=== PATIENT | female | born 1950 | race Caucasian/White ===

== ENCOUNTER 2017-10-09 11:04 | Emergency (ER) | payer MEDICARE, BC ==
[2017-10-09 11:47] VITALS: BP 102/77
--- NOTE | 2017-10-09 13:08 | XRAY Preliminary Report ---
Exam: XR ANKLE 3 VIEW RT IMPRESSION: No fracture or subluxation. [facility] SITE ID: [id number]
--- NOTE | 2017-10-09 13:11 | XRAY Report ---
EXAM: RIGHT ANKLE RADIOGRAPHY EXAM DATE: 10/09/2017 12:41 PM. CLINICAL HISTORY: Fall, pain. COMPARISON: None. TECHNIQUE: 3 views. FINDINGS: Bones: Normal. No fractures or bone lesions. Joints: Normal. No effusion. No subluxations. The ankle mortise is normally aligned. Soft Tissues: Normal. No soft tissue swelling. IMPRESSION: No fracture or subluxation. [facility] Referring Provider Line: [phone] SITE ID: [id number]
--- NOTE | 2017-10-09 13:26 | ED Physician Documentation ---
History of Present Illness - Stated complaint Stated Complaint: R FOOT INJ/BACK PX - Chief complaint Chief Complaint: Ext Problem - History obtained from History obtained from: Patient (pt here for evaluation of right foot pain. she states that she fell down some stairs yesterday. did not hit her head. has some bruising on her back. states that today she had pain in her right foot. no other injuries form the fall.) Review of Systems Constitutional: denies: Fever, Chills Cardiac: denies: Chest pain / pressure, Palpitations Respiratory: denies: Cough GI: denies: Abdominal Pain, Nausea, Vomiting Skin: reports: Abrasion (s) (right loer back). denies: Rash Musculoskeletal: reports: Extremity pain (right foot). denies: Neck pain, Back pain, Joint pain, Joint swelling Neurologic: denies: Generalized weakness, Focal weakness, Headache, Head injury , LOC PD PAST MEDICAL HISTORY - Past Medical History Past Medical History: No - Past Surgical History Past Surgical History: Yes /[employer]: section HEENT: Tonsil/Adenoidectomy - Present Medications Home Medications: Ambulatory Orders Medication Instructions Recorded Confirmed No Known Home Medications [No 10/09/17 10/09/17 Known Home Medications] - Allergies Allergies/Adverse Reactions: Allergies Allergy/AdvReac Type Severity Reaction Status Date / Time acetaminophen [From Percocet] AdvReac Emesis Verified 10/09/17 11:47 oxycodone [From Percocet] AdvReac Emesis Verified 10/09/17 11:47 - Social History Does the pt smoke?: No Smoking Status: Never smoker Does the pt drink ETOH?: No ETOH Use: Wine Does the pt have substance abuse?: No - Immunizations Immunizations are current?: Yes - POLST Patient has POLST: No PD ED PE NORMAL - Vitals Vital signs reviewed: Yes - General General: Alert and oriented X 3 - HEENT HEENT: Atraumatic, Moist mucous membranes - Respiratory Respiratory: No respiratory distress - Abdomen Abdomen: Soft, Non tender, Non distended - Back Back: No spinal TTP (pt with right sided lower back bruising but no midline TTP ) - Derm Derm: Other (bruising to lower back and over dorsum of right foot. ) - Extremities Extremities: No deformity. No: No tenderness to palpate (TTP over the dorsum of the lasteral aspect of the right foot. ) - Neuro Neuro: Alert and oriented X 3 Results - Vitals Vitals: Vital Signs - 24 hr 10/09/17 11:42 Temperature 36.8 C Heart Rate 69 Respiratory 16 Rate Blood Pressure 102/77 O2 Saturation 99 Oxygen O2 Source Room air - Rads (name of study) right foot Radiology: Final report received PD MEDICAL DECISION MAKING - ED course Complexity details: d/w patient ED course: contusion to her lower back but no midline tenderness doubt spinal fracture. no neck pain. did not hit head. pt is able to walk. has no fracture on the X- ray discussed this with her. discussed RICE treatment. gave return precautions. Departure - Departure Disposition: 01 Home, Self Care Clinical Impression: Fall (on) (from) other stairs and steps, initial encounter, Back contusion, Foot contusion Condition: Good Instructions: ED RICE Follow-Up: primary,care provider [Other] Comments: Return to the ER for any new or worsening symptoms.
== END 2017-10-09 13:43 | disposition home or self-care (01) ==
LOC: ED 11:04
DX: S90.31XA Contusion of right foot, initial encounter (principal); S30.0XXA Contusion of lower back and pelvis, initial encounter; W10.9XXA Fall (on) (from) unspecified stairs and steps, initial encounter
CPT/HCPCS: 99282; 99283